=== PATIENT | female | born 1970 | race Two or more races ===

== ENCOUNTER 2023-10-29 13:40 | Emergency (ER) | payer MEDICAID, OTHER ==
[~2023-10-29] VITALS: Ht 157.5 cm; Wt 68.5 kg
[2023-10-29 14:08] VITALS: BP 131/82; PULSE 90; RESP 18; TEMP 98.6; O2SAT 97
[2023-10-29] MEDS: KETOROLAC TROMETH 60MG/2ML VIAL IM ONE (14:13)
[2023-10-29] MEDS ORDERED: IBUP-1456 PO (14:45)
[2023-10-29] MEDS ORDERED: METH-1182 PO (14:45)
== END 2023-10-29 14:51 | disposition home or self-care (01) ==
LOC: ER 13:40
DX: S39.012A Strain of muscle, fascia and tendon of lower back, initial encounter (principal); Z88.2 Allergy status to sulfonamides; X58.XXXA Exposure to other specified factors, initial encounter; Y93.89 Activity, other specified; Y92.89 Other specified places as the place of occurrence of the external cause; Y99.8 Other external cause status
CPT/HCPCS: 72100; 96372; 99283; J1885

== ENCOUNTER 2024-03-24 07:40 | Emergency (ER) | payer MEDICAID ==
[~2024-03-24] VITALS: Ht 157.5 cm; Wt 68.3 kg
[~2024-03-24 07:40] MED LIST: IBUP-1456 PO; METH-1182 PO
--- NOTE | 2024-03-24 08:21 | DVH ---
CLINICAL INFORMATION: 53 years old, Female; COUGH. TECHNIQUE: Frontal and lateral chest radiographs were obtained. COMPARISON: None FINDINGS: Lungs: Focal airspace consolidation in the right upper lobe, most likely infectious or inflammatory i n nature. Left lung is clear. Cardiac: Heart size is within normal limits. Pulmonary vasculature: Unremarkable Mediastinum/anamaria: Within normal limits. Bones: No evidence of acute osseous abnormality. Other: No other significant finding. IMPRESSION: Focal consolidation in the right upper lobe, likely infectious or inflammatory in nature. Correlate w ith clinical findings. If clinically indicated, CT could be obtained to further evaluate.
--- NOTE | 2024-03-24 08:26 | ED.PDOC ---
SOB-HPI HPI Comments A 53 YEAR OLD FEMALE PRESENTS TO THE ED WITH COMPLAINT OF COUGH. PATIENT REPORTS SHE HAS BEEN EXPERIENCING A CHRONIC COUGH FOR THE PAST 2 MONTHS, HOWEVER, SHE HAS ASSOCIATED HEADACHE, BODY ACHES, AND FEVER FOR THE PAST 3 DAYS. PATIENT RELAYS THAT SHE WAS SEEN BY UC AND HER PCP, BEING PRESCRIBED ALLERGY MEDICATION AND 2 SETS OF ANTIBIOTICS, BUT NO RELIEF HAS BEEN NOTED. PATIENT DENIES CHILLS, SHORTNESS OF BREATH, CHEST PAIN, ABDOMINAL PAIN, NAUSEA, VOMITING, DIZZINESS, OR OTHER COMPLAINTS. NO OTHER SYMPTOMS OR MODIFYING FACTORS AT THIS TIME. Chief Complaint: Cough Time Seen by MD: 08:21 Reviewed notes: Nurses Notes, Medications, Allergies Information Source: Patient Mode of Arrival: WALKER Severity: Moderate Timing: Days Duration: Since onset Context: At Rest PE Risk Factors: None History of: Recent URI, Recent Antibiotic Prehospital treatment: None Modifying Factors: Nothing Associated Signs and Symptoms: Fever, Cough If cough with SOB: Productive Past Medical History PAST MEDICAL HISTORY: Denies Surgical History: Denies all surgeries TAXI SERVICER History: No Pertinent TAXI SERVICER History Family History Family History: Reviewed,noncontributory to illness Social History Smoker: Non-Smoker Alcohol: Denies ETOH Use Drugs: Denies Drug Use Lives In: Home Constitutional: reports: fever, others (BODY ACHES); denies: chills, diaphoresis, fatigue, malaise, sweats, weakness EENTM: reports: nose congestion, throat pain, throat swelling, voice changes; denies: blurred vision, double vision, ear bleeding, ear discharge, ear drainage, ear pain, ear ringing, eye pain, eye redness, hearing loss, mouth pain, mouth swelling, nasal discharge, nose bleeding, nose pain, photophobia, tearing, others Respiratory: reports: cough; denies: hemoptysis, orthopnea, SOB at rest, shortn ess of breath, SOB with excertion, stridor, wheezing, others Cardiovascular: denies: chest pain, dizzy spells, diaphoresis, Dyspnea on exertion, edema, irregular heart beat, left arm pain, lightheadedness, palpitations, PND, syncope, others Gastrointestinal: denies: abdomen distended, abdominal pain, blood streaked bowels, constipated, diarrhea, dysphagia, difficulty swallowing, hematemesis, melena, nausea, poor appetite, poor fluid intake, rectal bleeding, rectal pain, vomiting, others Genitourinary: denies: abnormal vagina bleeding, burning, dyspareunia, dysuria, flank pain, frequency, hematuria, incontinence, pain, , vagina discharge, urgency, others Neurological: reports: headache; denies: dizziness, fainting, left sided numbness, left sided weakness, numbness, paresthesia, pre-existing deficit, right sided numbness, right sided weakness, seizure, speech problems, tingling, tremors, weakness, others Musculoskeletal: denies: back pain, gout, joint pain, joint swelling, muscle pain, muscle stiffness, neck pain, others Integumetry: denies: bruises, change in color, change in hair/nails, dryness, laceration, lesions, lumps, rash, wounds, others Allergic/Immunocompromised: denies: Difficulty Healing, Frequent Infections, Hives, Itching, others Hematologic/Lymphatic: denies: anemia, blood clots, easy bleeding, easy bruising, swollen glands, others Endocrine: denies: excessive hunger, excessive sweating, excessive thirst, excessive urination, flushing, intolerance to cold, intolerance to heat, unexplained weight gain, unexplained weight loss, others Psychiatric: reports: anxiety; denies: bipolar disorder, depression, hopeless, panic disorder, schizophrenia, sleepless, suicidal, others All Other Systems: Reviewed and Negative Physical Exam General Appearance: No Apparent Distress, Normal HEENT: PERRL/EOMI, Pharyngeal Erythema (TONSILLAR SWELLING, NO EXUDATES. ) Neck: Full Range of Motion, Non-Tender, Normal, Normal Inspection Respiratory: Chest Non-Tender, Expiration, No Accessory Muscle Use, No Respiratory Distress, Rhonchi Cardiovascular: No Edema, No JVD, No Murmur, No Gallop, Normal Peripheral Pulses, Regular Rate/Rhythm Breast Exam: Deferred Gastrointestinal: No Organomegaly, Non Tender, No Pulsatile Mass, Normal Bowel Sounds, Soft Genitalia: Deferred Pelvic: Deferred Rectal: Deferred Extremities: No calf tenderness, Normal capillary refill, Normal inspection, Normal range of motion, Non-tender, No pedal edema Musculoskeletal : Apperance: Normal Neurologic: Alert, funeral attendant II-XII nml as Tested, No Motor Deficits, Normal Affect, Normal Mood, No Sensory Deficits Cerebellar Function: Normal Reflexes: Normal Skin: Dry, Normal Color, Warm Peripheral Pulses: 2+ carotid (R), 2+ carotid (L) Lymphatic: No Adenopathy Was a procedure done? Was a procedure done?: No Differential Dx Differential Diagnosis: Bronchitis, Pneumonia, Sinusitis, Pharyngitis, URI X-Ray, Labs, Meds, VS Vital Signs Date Time Temp Pulse Resp B/P (MAP) Pulse Ox O2 Delivery O2 Flow Rate FiO2 03/24/24 08:28 101 16 97 Room Air 03/24/24 08:28 98.7 101 16 141/72 (95) 97 98.7 03/24/24 08:02 98.7 61 16 141/72 (95) 97 Current Medications Medications (Trade) Dose Ordered Sig/Jose De Jesus Route Start Time Stop Time Status Last Admin Ceftriaxone Sodium (Rocephin) 1,000 mg ONCE ONCE IM 03/24/24 08:30 03/24/24 08:31 DC 03/24/24 08:32 FINDINGS: Lungs: Focal airspace consolidation in the right upper lobe, most likely infectious or inflammatory in nature. Left lung is clear. Cardiac: Heart size is within normal limits. Pulmonary vasculature: Unremarkable Mediastinum/anamaria: Within normal limits. Bones: No evidence of acute osseous abnormality. Other: No other significant finding. IMPRESSION: Focal consolidation in the right upper lobe, likely infectious or inflammatory in nature. Correlate with clinical findings. If clinically indicated, CT could be obtained to further evaluate. X-Ray, Labs, Meds, VS Comment TREATMENT: ROCEPHIN 1G IM REVIEWED AND INTERPRETED RESULTS: CHEST XR AND AGREE RADIOLOGIST READING. INDEPENDENT HISTORIANS: NONE DISCUSSED TREATMENT AND RESULTS WITH MEDICAL PERSONNEL. I HAVE DISCUSSED IMAGING AND LAB RESULTS WITH PATIENT AND HAVE INSTRUCTED THEM TO FOLLOW UP WITH THEIR PCP IN 1-2 DAYS. THE PATIENT FULLY UNDERSTANDS THEIR RESULTS AND ARE AWARE THEY NEED TO FOLLOW UP WITH THEIR PCP FOR FURTHER EVALUATION IF THEIR SYMPTOMS PERSIST. Images Reviewed?: Images reviewed and evaluated by me Time of 1ST Reevaluation: 09:20 Reevaluation 1ST: Improved Patient Education/Counseling: Diagnosis, Treatment, Need For Follow Up Family Education/Counseling: Diagnosis, Treatment, No Family Present Medical Screening: No EMC Exist At This Time Departure 1 Departure Time of Disposition: 09:20 Impression: Primary Impression: Right upper lobe pneumonia Qualified Codes: J18.9 - Pneumonia, unspecified organism Additional Impression: Acute tonsillitis Qualified Codes: J03.90 - Acute tonsillitis, unspecified Disposition: HOME / SELF CARE / HOMELESS Condition: Stable Additional Instructions: FOLLOW-UP WITH PCP IN 1 TO 2 DAYS. TAKE MEDICATIONS PRESCRIBED. RETURN TO ED FOR ANY NEW OR WORSENING SYMPTOMS. e-Prescriptions Promethazine-Dm (Promethazine Dm 6.25-15 mg/5Ml) 1 Soha Soha 5 ML PO TID, #180 ML Prov: ARNOLDO DOWLING 03/24/24 Azithromycin (ZITHROMAX TABLET) 250 Mg Tb 250 MG PO DAILY, #6 TAB Prov: ARNOLDO DOWLING 03/24/24 Levofloxacin Hemihydrate (LEVAQUIN 500 MG) 500 Mg Tab 1 TAB PO DAILY, #10 TAB Prov: ARNOLDO DOWLING 03/24/24 Discharged With: Self Critical Care Note Critical Care Time?: No Stability Stability form required: No Heart Score Heart Score: Heart Score Response (Comments) Value History N/A 0 EKG N/A 0 Age N/A 0 Risk Factors N/A 0 Troponin N/A 0 Total 0 I personally scribed for ARNOLDO DOWLING ([email or web address]) on 03/24/24 at 08:26. Electronically submitted by Kp Newman ([email or web address]). ARNOLDO DOWLING Mar 24, 2024 08:26
[2024-03-24 08:28] VITALS: BP 141/72; PULSE 101; RESP 16; O2SAT 97
[2024-03-24] MEDS: cefTRIAXone SOD 1,000 MG VL IM ONE (08:32)
[2024-03-24 09:11] VITALS: TEMP 97.8
[2024-03-24] MEDS ORDERED: AZIT-185 PO (09:11)
[2024-03-24] MEDS ORDERED: LEVO500T91 PO (09:11)
[2024-03-24] MEDS ORDERED: PROM1SOL4 PO (09:11)
== END 2024-03-24 09:15 | disposition home or self-care (01) ==
LOC: ER 07:40
DX: J18.9 Pneumonia, unspecified organism (principal); J03.90 Acute tonsillitis, unspecified
CPT/HCPCS: 71046; 96372; 99283; J0696